=== PATIENT | female | born 1950 | race Caucasian/White ===

== ENCOUNTER 2023-12-22 13:16 | Emergency (ER) | payer OTHER ==
[~2023-12-22] VITALS: Ht 152.4 cm; Wt 67.1 kg
[2023-12-22] MEDS ORDERED: methylPREDNISolone SOD SUCC 125 MG/2ML VIAL ONE (13:56)
[2023-12-22] MEDS ORDERED: diphenhydrAMINE HCL 50 MG/ML VIAL ONE (13:56)
[2023-12-22] MEDS ORDERED: FAMOTIDINE/PF INJ 20 MG/2 ML VIAL IV ONE (13:57)
[2023-12-22] MEDS: IV NS 0.9% 1,000 ML BAG IV ONE (14:22)
[2023-12-22] MEDS: FAMOTIDINE/PF INJ 20 MG/2 ML VIAL IV ONE (14:23)
[2023-12-22] MEDS: diphenhydrAMINE HCL 50 MG/ML VIAL IV ONE (14:24)
[2023-12-22] MEDS: methylPREDNISolone SOD SUCC 125 MG/2ML VIAL IV ONE (14:25)
[2023-12-22] MEDS ORDERED: FAMO-131 PO (15:37)
[2023-12-22] MEDS ORDERED: PRED20TA PO (15:37)
[2023-12-22] MEDS ORDERED: DIPH25CA83 PO (15:37)
[2023-12-22 16:41] VITALS: BP 129/78; TEMP 98.6; O2SAT 95
== END 2023-12-22 16:42 | disposition home or self-care (01) ==
LOC: ER 13:24
DX: T78.49XA Other allergy, initial encounter (principal); L50.0 Allergic urticaria; G40.909 Epilepsy, unspecified, not intractable, without status epilepticus; Z86.73 Personal history of transient ischemic attack (TIA), and cerebral infarction without residual deficits; X58.XXXA Exposure to other specified factors, initial encounter
CPT/HCPCS: 99285; 96374; 96375; 96361; J1200; J3490; J7030; J2919